=== PATIENT | female | born 1970 | race Two or more races ===

== ENCOUNTER 2017-01-23 08:53 | Emergency (ER) | payer BC ==
[~2017-01-23] VITALS: Ht 152.4 cm; Wt 75.0 kg
[2017-01-23] MEDS ORDERED: SILV1CRE60 TOP (09:15)
[2017-01-23] MEDS ORDERED: PERC5TAB12 PO ×2 (09:15→10:54)
[2017-01-23] MEDS ORDERED: PERCOCET 5MG/325MG TAB PO ONE (09:45)
[2017-01-23] MEDS ORDERED: ADACEL/BOOSTRIX VACCINE (DIPHTH/PERTUSS/ACELL/TETANUS)0.5ML SYR (90715) IM ONE (09:45)
[2017-01-23 10:44] VITALS: BP 150/87
== END 2017-01-23 11:11 | disposition home or self-care (01) ==
LOC: M ED 08:53
DX: T24.002A Burn of unspecified degree of unspecified site of left lower limb, except ankle and foot, initial encounter (principal); T24.001A Burn of unspecified degree of unspecified site of right lower limb, except ankle and foot, initial encounter; X08.8XXA Exposure to other specified smoke, fire and flames, initial encounter; Y92.89 Other specified places as the place of occurrence of the external cause; Y93.89 Activity, other specified; Y99.8 Other external cause status